=== PATIENT | male | born 1945 | race Caucasian/White ===

== ENCOUNTER → 2018-06-21 08:32 | Outpatient (CLI) | payer MEDICARE ==
--- NOTE | ~2018-06-21 | EC ---
PATIENT:SAMMI CALIXTO DATE OF SERVICE: 06/21/18 SEX: M MEDICAL RECORD: [id number] DATE OF : [birth year] LOCATION:D.[facility] AGE OF PATIENT: 72 ADMISSION DATE: 06/21/18 REFERRING PHYSICIAN: INTERPRETING PHYSICIAN: JEISON SMYTH MD ECHOCARDIOGRAM REPORT ECHO CHARGES 4 ECHO COMPLETE Date: 06/21 CLINICAL DIAGNOSIS: A-FIB/SOB/CP ECHOCARDIOGRAPHIC MEASUREMENTS (adult normal given) AC root (d.<3.7cm) 3.5 cm LV Septum d (<1.2 cm> 1.2 cm Valve Excursion 1.6 cm LV Septum (systole) 1.9 cm Left Atria (s.<4.0cm> 3.9 cm LVPW d(<1.2cm) 1.1 cm RV (d.<2.3cm) 3.6 cm LVPW (sytole) 1.7 cm LV diastole(<5.6CM) 5.6 cm MV E-F(>70mm/sec) cm LV systole 3.5 cm LVOT Diameter 1.8 cm MV exc.(>10mm) cm Est.ejection fraction (50-75%) % DOPPLER: LVIT cm/sec A 45.0 cm/sec E 71.0 cm/sec LA cm/sec RVSP 39.3 mmHg LVOT 88.0 cm/sec AOP1/2T m/s Asc. Ao 111 cm/sec RVOT 54.0 cm/sec RA cm/sec PA 80.0 cm/sec AV Gradient Peak 4.9 mmHg AV Mean 2.8 mmHg AV Area 1.9 cm MV Gradient Peak 3.1 mmHg MV Mean 0.95 mmHg MV Area cm COMMENTS: Head Greenskeeper: Kat GONZALEZDSOE Mechanical Service Representative: 4 Dr. Smyth TAPE# PACS Pericardial Effusion N DATE OF SERVICE: REFERRING PHYSICIAN: Transthoracic echocardiogram. FINDINGS: 1. Left ventricle shows normal left ventricular function. Inflow characteristics are normal; however, it appears the patient may be in AFib, so inflow characteristics are not likely very helpful. 2. Aortic valve looks normal. 3. The left atrium is not well visualized, but grossly normal. ECHOCARDIOGRAM REPORT [id number] SAMMI CALIXTO 4. The mitral valve is not well visualized, but again grossly normal. 5. The tricuspid valve has moderate tricuspid regurgitation. RVSP mildly elevated in the 30 to 35 mmHg range. 6. Pericardium is normal. 7. The right ventricle appears to be dilated. 8. The right atrium appears to be dilated. CONCLUSIONS: The patient has normal left ventricular systolic function. Right-sided structures appear to be dilated and there is mild elevation in right ventricular systolic pressures, however, it should be noted that this echo was difficult to visualize endocardial structures. TRANSINT:[id number] Voice Confirmation ID: [id number] DOCUMENT ID: [id number] JEISON SMYTH MD at 1435 CC: [id number] DICTATION DATE: 06/23/18 1121 CUSTOMER GREETER: 06/23/18 1141 DEP CLI 06/21/18 [facility] [address] [place] [address]
[~2018-06-21 08:32] MED LIST: ACETAMINOPHEN500 M1 PO; BAYER CHEWABLE81 MG PO; CORDARONE200 MG PO; ELIQUIS2.5 MG PO; ELIQUIS5 MG PO; FLORAJEN3 CAPS460 MG PO; IBUPROFEN200 MG PO; LOPRESSOR25 MG PO; MUCINEX600 MG PO; OMNICEF300 MG PO; PERCOCET 5-3251 TAB PO; PROTONIX40 MG PO; TESSALON PERLE100 MG PO; VENTOLIN HFA18 GM INH; ZITHROMAX250 MG PO
[2018-08-02 14:32] VITALS: BMI 29.5
== END | disposition home or self-care (01) ==
LOC: D.ECHO 08:32
DX: I48.91 Unspecified atrial fibrillation (principal); R06.02 Shortness of breath; R07.9 Chest pain, unspecified

== ENCOUNTER → 2018-07-03 18:13 | Outpatient (CLI) | payer MEDICARE ==
[2018-07-03 18:43] LABS: CHOL - HDL RATIO 2.5 ratio (2.3-4.9); LDL-HDL RATIO 1.4 ratio (1.5-3.5)
[2018-07-03 19:34] LABS: ERYTHROCYTE SEDIMENTATION RATE 5 mm/hr (0-20)
[2018-08-02 14:32] VITALS: BMI 29.5
== END | disposition home or self-care (01) ==
LOC: D.LABREF 18:13
PROVIDERS: Internal Medicine Cardiovascular Disease
DX: R07.9 Chest pain, unspecified (principal); R06.02 Shortness of breath

== ENCOUNTER → 2018-07-13 05:53 | Outpatient (CLI) | payer MEDICARE ==
[~2018-07-13] VITALS: Ht 177.8 cm; Wt 86.4 kg
--- NOTE | ~2018-07-13 | OP ---
PATIENT NAME: SAMMI CALIXTO MEDICAL RECORD: [id number] :[birth year] LOCATION:D.CAT ADMISSION DATE: SURGEON: BUBBA SMYTH MD DATE OF OPERATION: 07/13/2018 PROCEDURES: Left heart catheterization, LV gram, coronary angiogram. VP HUMAN RESOURCES: Bubba Smyth MD PROCEDURE IN DETAIL: The patient was brought into the cardiac catheterization lab in a stable condition. Both groins and the right wrist were sterilely prepped and draped. The patient had a 6-Zimbabwean sheath placed in the right radial artery using a modified Seldinger technique in a retrograde fashion. The patient then had a 5-Zimbabwean diagnostic catheter utilized to intubate the left ventricular cavity to the right coronary artery and the left coronary artery respectively. FINDINGS: 1. Hemodynamics: Left ventricular ejection fraction is 60%. End-diastolic pressure is normal to even low. 2. The left main is normal. 3. The LAD has an ostial proximal 70% stenosis moderately calcified and a mid heavily calcified 80% stenosis. 4. The mid diagonal has a proximal and mid 90% stenosis. 5. The circumflex has a 99% proximal stenosis and 100% stenosis at the OM vessel. 6. The RCA is a large dominant vessel, heavily calcified throughout its course with a 90% stenosis distally. 7. The right PDA has a mid 100% stenosis with midline bridging collaterals. IMPRESSION: Severe multivessel coronary artery disease with preserved LV systolic function. RECOMMENDATIONS: Consider coronary artery bypass grafting. TRANSINT:[id number] Voice Confirmation ID: [id number] DOCUMENT ID: [id number] BUBBA SMYTH MD at 1011 CC: [id number] DICTATION DATE: 07/13/18822 RIPSHEAR OPERATOR: 07/13/18 0847 DEP CLI 07/13/18 [place] [id number]
--- NOTE | ~2018-07-13 | HEMODYNAMI ---
PATIENT:SAMMI CALIXTO MEDICAL RECORD: [id number] : 49 LOCATION:DLM ADMISSION DATE: 07/13/18 Generatedon:07/13/20188:22 Patient name: SAMMI CALIXTO Patient #: [id number] SSN: DO B: 1945 Date of study: 07/13/2018 Page: Of Hemodynamic Procedure Report Patient Data Patient Demographics Procedure consent was obtained First Name: SAMMI Gender: Male Last Name: MARILY : 1945 [facility] Initial: B Age: 72 year(s) Patient #: [id number] Race: Unknown Additional ID: [id number] Contact details [address]: [address] [place] [address] State: [place] City: [place] Zip code: [address] Past Medical History Allergies Allergen Reaction Date Comments Reported Iodine 07/13/2018 IV contrast dye 07/13/2018 Admission Admission Data Admission Date: 07/13/2018 Admission Time: 5:53 Weight (lbs.): 198 Weight (kg.): 89.81 Lab Results Lab Result Date: 07/13/2018 Lab Result Time: 0:00 Biochemistry Name Units Result Min Max BUN mg/dl 16 --(---*)-- 7 18 Creatinine mg/dl 1.2 --(---*)-- 0.6 1.3 CBC Name Units Result Min Max Hemoglobin g/dl 13.8 --(*---)-- 13.5 17.5 Procedure Procedure Types Cath Procedure Diagnostic Procedure LHC [facility] w/Coronaries Sedation Charges Moderate Sedation up to 15 minutes Procedure Description Procedure Date Procedure Date: 07/13/2018 Procedure Start Time: 8:05 Procedure End Time: 8:19 Procedure Staff Name Function Bubba Marquez MD Performing Physician Marcia Da Silva RT Monitor Estelle Shafer RT Scrub Anjel Doe RN Nurse Procedure Data Cath Procedure Fluoroscopy Diagnostic fluoroscopy Total fluoroscopy Time: 2.4 time: 2.4 min min Diagnostic fluoroscopy Total fluoroscopy dose: 917 dose: 917 mGy mGy Contrast Material Contrast Material Type Amount (ml) Isovue 300 63 Entry Location Entry Primary Successful Side Size Upsize Upsize Entry Closure Krishnan ccessful Closure Location (Fr) 1 (Fr) 2 (Fr) Remarks Device Remarks Radial Right 6 Fr Mechanical artery Short Compression Estimated blood loss: 5 ml Diagnostic catheters Device Type Used For End Catheter Placement DIAGNOSTIC [place] 110cm 5 Procedure Fr catheter ([id number]) Procedure Complications No complications Procedure Medications Medication Administration Route Dosage Oxygen etCO2 Nasal cannula 2 l/min Lidocaine 2% added to field 20 Heparin Flush Bag added to field 2 bags (1000units/500ml NS) 0.9% NaCl I.V. 100 ml/hr Radial Cocktail I.A. 1 syringe (Verapomil 2mg/Nitro 400mcg/Heparin 1500units) Versed I.V. 1 mg Fentanyl I.V. 50 mcg Versed I.V. 0.5 mg Hemodynamics Rest HGB: 13.8 (g/dl) Heart Rate: 0 (bpm) Pressure Samples Time Site Value (mmHg) Purpose Heart Use Rate(bpm) 8:11 LV 102/-5,9 EDP 57 Gradients Valve Time Site Site Mean SEP/DFP Peak To Heart Use 1 2 (mmHg) (sec/min) Peak Rate (mmHg) (bpm) Aortic 8:12 LV AO 75 Snapshots Pre Cath Intra NCS Post Cath Vital Signs Time Heart Resp SPO2 etCO2 NIBP (mmHg) Rhythm Pain Sedation Rate (ipm) (%) (mmHg) Status Level (bpm) 7:51:27 61 20 99 141/90(121) A-Fib 0 (11) 10(A) , No pain 7:55:37 57 23 100 29.9 135/87(115) A-Fib 0 (11) 10(A) , No pain 7:59:47 68 19 100 29.9 122/81(109) A-Fib 0 (11) 10(A) , No pain 8:04:02 59 17 97 30 134/81(114) A-Fib 0 (11) 10(A) , No pain 8:08:12 60 17 96 18.7 131/83(112) A-Fib 0 (11) 9(A) , No pain 8:12:22 65 13 94 29.9 115/76(99) A-Fib 0 (11) 9(A) , No pain 8:16:26 63 15 93 29.9 107/75(89) A-Fib 0 (11) 10(A) , No pain Medications Time Medication Route Dose Verified Delivered Reason Notes Effectiveness by by 7:56:49 Oxygen etCO2 2 l/min Bubba Buffie used for Nasal Jimmy Doe RN procedure cannula 7:57:59 Lidocaine 2% added 20ml Bubba Bubba for local to vial Jimmy Marquez MD anesthetic field MORALES 7:58:05 Heparin Flush added 2 bags Bubba Bubba used for Bag to Jimmy Marquez MD procedure (1000units/500ml field MORALES NS) 7:58:14 0.9% NaCl I.V. 100 Bubba Buffie Per ml/hr Jimmy Doe RN physician 7:58:48 Radial Cocktail I.A. 1 Bubba Bubba for (Verapomil syringe Jimmy Marquez MD vasodilation 2mg/Nitro MD 400mcg/Heparin 1500units) 8:02:21 Versed I.V. 1 mg Bubba Buffie for sedation Jimmy Doe RN, MD 8:02:27 Fentanyl I.V. 50 mcg Bubba Buffie for sedation Jimmy Doe RN, MD 8:13:58 Versed I.V. 0.5 mg Bubba Buffie for sedation Jimmy Doe RN, MD Procedure Log Time Note 7:38:06 Signed procedure consent form obtained from patient. 7:38:08 Time tracking: Regular hours (M-F 7:00 - 5:00) 7:38:15 Plan of Care:Hemodynamics will remain stable., Cardiac rhythm will remain stable., Comfort level will be maintained., Respiratory function will remain adequate., Patient/ family verbilizes understanding of procedure., Procedure tolerated without complication., Recovers from procedure without complications.. 7:38:41 H&P Date Dictated: 07/11/2018 Within 30 days and on chart., H&P Addendum completed by physician on day of procedure. (MUST COMPLETE FOR ALL OUTPATIENTS). 7:38:56 Patient allergic to Iodine 7:39:04 Patient allergic to IV contrast dye 7:40:19 Patient Weight : 198 lbs 7:41:22 Estelle HOFFMANN(R) sent for patient. Start room use. 7:45:34 Patient received from Pre/Post Procedure Room to CCL 2 Alert and oriented. Tansferred to table in Supine position. 7:45:36 Warm blankets applied, and fan hugger turned on for patient comfort. 7:45:36 Correct patient and procedure confirmed by team. 7:45:37 ECG and BP/O2 sat monitors applied to patient. 7:45:38 Pre-procedure instructions explained to patient. 7:45:38 Pre-op teaching completed and patient verbalized understanding. 7:45:40 Family in waiting room. 7:45:42 Patient NPO since Midnight. 7:50:21 Vital chart was started 7:50:22 Baseline sample Acquired. 7:50:28 Rhythm: atrial fibrillation 7:50:32 Full Disclosure recording started 7:50:35 Is the patient allergic to Iodine/contrast media? No. 7:50:37 Is patient on blood thinner?Yes 7:50:39 ACC The patient was administered the following blood thiners within the last 24 hours: ACCPlavix 7:50:42 Patient diabetic? No. 7:50:47 Previous problem with sedation/anesthesia? No ? 7:50:54 Snore? No 7:50:55 Sleep apnea? No 7:50:56 Deviated septum? No 7:50:57 Opens mouth fully? Yes 7:50:58 Sticks out tongue? Yes 7:50:59 Airway obstruction? No ? 7:51:05 Dentures? Yes partila in tight 7:51:10 Modified Fam's test Ulnar < 7 seconds 7:51:11 Patient pain scale 0/10 ?. 7:51:20 IV patent on arrival in left forearm with 0.9% NaCl at O. 7:56:49 Oxygen 2 l/min etCO2 Nasal cannula was administered by Anjel Doe RN; used for procedure; 7:57:59 Lidocaine 2% 20ml vial added to field was administered by Bubba Marquez MD; for local anesthetic; 7:58:05 Heparin Flush Bag (1000units/500ml NS) 2 bags added to field was administered by Bubba Marquez MD; used for procedure; 7:58:10 Baseline sample Acquired. 7:58:14 0.9% NaCl 100 ml/hr I.V. was administered by Anjel Doe RN; Per physician; 7:58:48 Radial Cocktail (Verapomil 2mg/Nitro 400mcg/Heparin 1500units) 1 syringe I.A. was administered by Bubba Marquez MD; for vasodilation; 8:00:14 Lab Result : BUN 16 mg/dl 8:00:14 Lab Result : Hemoglobin 13.8 g/dl 8:00:14 Lab Result : Creatinine 1.2 mg/dl 8:00:17 Lab results completed and on chart. 8:00:20 Right Radial & Right Groin area was prepped with chlora-prep and draped in sterile fashion 8:00: Alarms reviewed by R. N. 8:00: Sharps counted by scrub and verified by R.N. 8:: --------ALL STOP TIME OUT------ : Final Timeout: patient, procedure, and site verified with staff and physician. All members of the team are in agreement. 8:00:25 Right Radial & Right Groin site verified by team. 8:00:28 Physical assessment completed. ASA score P 2 - A patient with mild systemic disease as per Bubba Marquez MD. 8:00:31 Sedation plan: IV Moderate Sedation Medication:Versed, Fentanyl 8:00:39 Use device set Radial Dx or PCI 8:00:40 ACIST Syringe (79088) opened to sterile field. 8:00:41 Bag Decanter (2002S) opened to sterile field. 8:00:42 ACIST Hand Control (41242) opened to sterile field. 8:00:43 ACIST Manifold (36480) opened to sterile field. 8:00:43 Tegaderm 4 x 4 (1626W) opened to sterile field. 8:00:45 Medline Cath Pack ([id number]) opened to sterile field. 8:00:45 DIAGNOSTIC WIRE .035 260cm J wire (767150) opened to sterile field. 8:00:46 MBrace Wrist Support ([id number]) opened to sterile field. 8:00:47 SHEATH 6Fr Prelude Radial ([id number]) opened to sterile field. 8:02:21 Versed 1 mg I.V. was administered by Anjel Doe RN; for sedation; 8:02:27 Fentanyl 50 mcg I.V. was administered by Anjel Doe RN; for sedation; 8:05:02 Zero performed for pressure channel P1 8:05:39 Procedure started. 8:05:57 Local anesthetic to right radial artery with Lidocaine 2% by Bubba Marquez MD.INITIAL ACCESS ONLY 8:09:05 A 6 Fr Short sheath was inserted into the Right Radial artery 8:09:24 A DIAGNOSTIC [place] 110cm 5 Fr catheter (455705) was advanced over the wire and used for Procedure. 8:10:34 LV gram done using TREJO 8:10:37 Injector settings: Ml/sec: 7, Volume: 15, 8:11:28 LV hemodynamics recorded. 8:12:06 EF : 60 % 8:13:58 Versed 0.5 mg I.V. was administered by Anjel Doe RN; for sedation; 8:14:02 LCA angiography performed. 8:16:35 RCA angiography performed. 8:16:43 Catheter removed. 8:16:47 TR BAND Standard ([id number]) opened to sterile field. 8:17:07 Procedure ended.(Physican Out) 8:17:41 Sheath removed intact; hemostasis achieved with Mechanical Compression to the Right Radial artery. 8:18:06 Fluoroscopy time 02.40 minutes. 8:18:10 Fluoroscopy dose: 917 mGy 8:18:10 Flurop Dose total: 917 8:18:13 Contrast amount:Isovue 300 63ml. 8:18:15 Sharps counted by scrub and verified by R.N. 8:18:17 TR band inflated with 10cc of air. 8:18:24 Post-procedure physical assessment completed. ASA score P 2 - A patient with mild systemic disease as per Bubba Marquez MD. 8:18:29 Post procedure rhythm: atrial fibrillation 8:18:32 Estimated blood loss: 5 ml 8:18:33 Post procedure instruction explained to patient.Patient verbalizes understanding. 8:18:34 Patient needs reinforcement of post procedure teaching. 8:18:55 Procedure type changed to Cath procedure, Diagnostic procedure, LHC, LHC w/Coronaries, Sedation Charges, Moderate Sedation up to 15 minutes 8:19:02 Procedure and supply charges have been captured, reviewed, submitted and are correct. 8:19:22 Procedure Complication : No complications 8:19:24 Vital chart was stopped 8:19:24 See physician's report for complete and final results. 8:19:26 Report given to Pre/Post Procedure Room. 8:19:34 Patient transfered to Pre/Post Procedure Room with Bed. 8:19:36 Procedure ended. 8:19:36 Full Disclosure recording stopped 8:19:41 End room use (Document Last) Device Usage Item Name Manufacture Quantity Catalog Number Hospital Part Current M inimal Lot# / Charge Number Stock Stock Serial# Code ACIST Syringe Acist 1 57245 445074 576179 489755 2 0 (13157) Medical Systems CareKinesis Bag Decanter Microtek 1 2001S 751314 48146 222984 5 (2001S) Medical Inc. ACIST Hand Acist 1 24221 459622 674785 559411 5 Control (80671) Medical Systems Inc ACIST Manifold Acist 1 11508 447187 575372 491316 5 (60716) Medical Systems Inc Tegaderm 4 x 4 3M 1 1626W 584454 956779 789097 5 (1626W) Medline Cath Cardinal 1 [id number] 151093 99917 282419 5 [facility] ([id number]) DIAGNOSTIC WIRE [facility] [place] 1 764313 521065 835176 091161 3 0 .035 260cm J wire (775931) MBrace Wrist Advanced 1 140-0250-00 641886 18257 616036 5 Support Vascular ([id number]) Dynamics SHEATH 6Fr Merit 1 [id number] 540477 887874 928571 5 Prelude Radial Medical ([id number]) DIAGNOSTIC Terumo 1 40-8787 115145 430568 496522 5 [place] 110cm 5 Fr catheter (870255) TR BAND Terumo 1 [id number] 690322 980558 058814 4 0 Standard ([id number]) Signature Audit [place] Stage Time Signature Unsigned Intra-Procedure 07/13/2018 Marcia Da Silva 8:21:54 AM RT(R) Signatures Monitor : Marcia Da Silva Signature : RT Date : Time : [place] [address] [place] [address]
[2018-07-13 07:11] VITALS: BP 171/84; Ht 177.8 cm; Wt 86.4 kg
[2018-07-13 07:11] LABS: BASOPHILS 0.6 % (0-2); EOSINOPHILS 5.1 % (0-7); HEMATOCRIT 40.3 % (42.0-54.0); HEMOGLOBIN 13.8 g/dL (13.5-17.5); IMMATURE GRANULOCYTES 0.2 % (0-5); LYMPHOCYTES 22.7 % (15-50); MCH 32.1 pg (26.0-34.0); MCHC 34.2 g/dL (31.0-37.0); MCV 93.7 fL (80.0-100.0); MONOCYTES 11.9 % (2-11); NEUTROPHILS 59.5 % (40-80); PLATELET COUNT 212 10x3/uL (130-400); RDW 12.6 % (11.5-14.5); WBC 6.5 10x3/uL (4.8-10.8)
[2018-07-13 07:46] LABS: ANION GAP 10.9 mmol/L (8-16); CALCIUM 8.4 mg/dL (8.5-10.1); CARBON DIOXIDE 27.5 mmol/L (21.0-32.0); CREATININE - SERUM 1.2 mg/dL (0.6-1.3); POTASSIUM - SERUM 4.4 mmol/L (3.5-5.1)
== END | disposition home or self-care (01) ==
LOC: D.CATH 05:53
PROVIDERS: Internal Medicine Cardiovascular Disease
DX: I25.119 Atherosclerotic heart disease of native coronary artery with unspecified angina pectoris (principal); Z01.812 Encounter for preprocedural laboratory examination

== ENCOUNTER 2018-07-22 02:52 | Inpatient (IN) | payer MEDICARE ==
[~2018-07-22] VITALS: Ht 177.8 cm; Wt 90.9 kg
[2018-07-22] VITALS (8 sets, daily range): BP systolic 120–150; BP diastolic 44–81; Ht 177.8 cm; Wt 90.9 kg
[~2018-07-22 02:52] MED LIST changes: -ACETAMINOPHEN500 M1 PO; -CORDARONE200 MG PO; -ELIQUIS2.5 MG PO; -FLORAJEN3 CAPS460 MG PO; -LOPRESSOR25 MG PO; -MUCINEX600 MG PO; -OMNICEF300 MG PO; -PERCOCET 5-3251 TAB PO; -PROTONIX40 MG PO; -TESSALON PERLE100 MG PO; -VENTOLIN HFA18 GM INH; -ZITHROMAX250 MG PO
[2018-07-22 03:27] LABS: BASOPHILS 0.4 % (0-2); EOSINOPHILS 1.8 % (0-7); HEMATOCRIT 42.9 % (42.0-54.0); HEMOGLOBIN 14.7 g/dL (13.5-17.5); IMMATURE GRANULOCYTES 0.2 % (0-5); LYMPHOCYTES 11.5 % (15-50); MCH 31.3 pg (26.0-34.0); MCHC 34.3 g/dL (31.0-37.0); MCV 91.5 fL (80.0-100.0); MEAN PLATELET VOLUME 9.9 fL (7.4-10.4); MONOCYTES 6.1 % (2-11); PLATELET COUNT 206 10x3/uL (130-400); RBC 4.69 10x6/uL (4.20-6.10); RDW 12.3 % (11.5-14.5); WBC 8.2 10x3/uL (4.8-10.8)
[2018-07-22 03:30] LABS: APTT 27.9 SECONDS (22.8-39.4); INR 1.01 (0.85-1.17); PROTIME 12.9 SECONDS (11.6-15.0)
[2018-07-22 03:53] LABS: ALBUMIN 3.6 g/dL (3.4-5.0); ALKALINE PHOSPHATASE 67 U/L (46-116); ALT (SGPT) 19 U/L (10-68); AMYLASE - SERUM 84 U/L (25-115); BILIRUBIN - TOTAL 0.26 mg/dL (0.2-1.3); CALC OSMOLALITY 265 mosm/kg (275-300); CALCIUM 7.8 mg/dL (8.5-10.1); CHLORIDE - SERUM 97 mmol/L (98-107); CKMB 1.7 U/L (0.0-3.6); CREATINE KINASE 62 UL (21-232); CREATININE - SERUM 1.1 mg/dL (0.6-1.3); GLUCOSE 146 mg/dL (74-106); LIPASE 244 U/L (73-393); POTASSIUM - SERUM 4.2 mmol/L (3.5-5.1); PRO BNP 756 pg/mL (0-125); PROTEIN - SERUM 7.6 g/dL (6.4-8.2); SODIUM 131 mmol/L (136-145); TROPONIN-I < 0.017 ng/mL (0.000-0.060); UREA NITROGEN 13 mg/dL (7-18); eGFR NON AFRICAN AMERICAN 70 mL/min (90-120)
[2018-07-22 06:34] LABS: CKMB 1.4 U/L (0.0-3.6); CREATINE KINASE 53 UL (21-232); TROPONIN-I < 0.017 ng/mL (0.000-0.060)
[2018-07-22 09:38] LABS: BASOPHILS 0.2 % (0-2); EOSINOPHILS 0.3 % (0-7); HEMATOCRIT 39.7 % (42.0-54.0); HEMOGLOBIN 13.8 g/dL (13.5-17.5); IMMATURE GRANULOCYTES 0.2 % (0-5); MCH 31.5 pg (26.0-34.0); MCHC 34.8 g/dL (31.0-37.0); MCV 90.6 fL (80.0-100.0); MEAN PLATELET VOLUME 9.9 fL (7.4-10.4); MONOCYTES 8.7 % (2-11); NEUTROPHILS 85.6 % (40-80); PLATELET COUNT 166 10x3/uL (130-400); RBC 4.38 10x6/uL (4.20-6.10); RDW 12.3 % (11.5-14.5)
[2018-07-22 09:39] LABS: WBC 12.7 10x3/uL (4.8-10.8)
[2018-07-22 11:29] LABS: CREATINE KINASE 44 UL (21-232)
[2018-07-22 11:35] LABS: TROPONIN-I < 0.017 ng/mL (0.000-0.060)
[2018-07-22 18:12] LABS: CKMB 0.8 U/L (0.0-3.6); CREATINE KINASE 35 UL (21-232); TROPONIN-I < 0.017 ng/mL (0.000-0.060)
[2018-07-23 00:46] VITALS: BP 118/72
[2018-07-23 05:03] LABS: BASOPHILS 0.4 % (0-2); EOSINOPHILS 1.1 % (0-7); HEMATOCRIT 38.2 % (42.0-54.0); IMMATURE GRANULOCYTES 0.1 % (0-5); LYMPHOCYTES 12.6 % (15-50); MCH 31.6 pg (26.0-34.0); MEAN PLATELET VOLUME 10.2 fL (7.4-10.4); MONOCYTES 10.5 % (2-11); NEUTROPHILS 75.3 % (40-80); PLATELET COUNT 170 10x3/uL (130-400); RBC 4.12 10x6/uL (4.20-6.10); RDW 12.8 % (11.5-14.5)
[2018-07-23 05:12] LABS: MCV 92.7 fL (80.0-100.0)
[2018-07-23 05:32] LABS: ALBUMIN 2.9 g/dL (3.4-5.0); ALKALINE PHOSPHATASE 52 U/L (46-116); ALT (SGPT) 16 U/L (10-68); BILIRUBIN - TOTAL 0.74 mg/dL (0.2-1.3); C-REACTIVE PROTEIN 9.7 mg/dL (0.0-0.9); CALC OSMOLALITY 269 mosm/kg (275-300); CALCIUM 7.6 mg/dL (8.5-10.1); CARBON DIOXIDE 24.6 mmol/L (21.0-32.0); CHLORIDE - SERUM 104 mmol/L (98-107); CREATININE - SERUM 0.9 mg/dL (0.6-1.3); GLUCOSE 109 mg/dL (74-106); POTASSIUM - SERUM 4.1 mmol/L (3.5-5.1); PROTEIN - SERUM 6.4 g/dL (6.4-8.2); SODIUM 135 mmol/L (136-145); UREA NITROGEN 11 mg/dL (7-18); eGFR NON AFRICAN AMERICAN 89 mL/min (90-120)
[2018-07-23 08:49] VITALS: BP 105/72
[2018-07-23] MEDS ORDERED: MUCINEX600 MG PO (11:47)
[2018-07-23] MEDS ORDERED: PROTONIX40 MG PO (11:47)
[2018-07-23] MEDS ORDERED: VENTOLIN HFA18 GM INH (11:47)
[2018-07-23] MEDS ORDERED: TESSALON PERLE100 MG PO (11:47)
[2018-07-23] MEDS ORDERED: OMNICEF300 MG PO (11:47)
[2018-07-23] MEDS ORDERED: FLORAJEN3 CAPS460 MG PO (11:47)
[2018-07-23] MEDS ORDERED: ZITHROMAX250 MG PO (11:47)
== END 2018-07-23 14:30 | disposition home or self-care (01) | DRG 194 ==
LOC: D.ER 02:52 → D.ICU 05:41 → D.MS 13:26
PROVIDERS: Family Medicine; Internal Medicine Gastroenterology
DX: J18.9 Pneumonia, unspecified organism (principal); E87.1 Hypo-osmolality and hyponatremia; I48.91 Unspecified atrial fibrillation; Z79.02 Long term (current) use of antithrombotics/antiplatelets; I25.10 Atherosclerotic heart disease of native coronary artery without angina pectoris; K21.9 Gastro-esophageal reflux disease without esophagitis; Z87.891 Personal history of nicotine dependence

== ENCOUNTER 2018-07-28 09:00 | Inpatient (IN) | payer MEDICARE ==
[~2018-07-28] VITALS: Ht 177.8 cm; Wt 97.0 kg
--- NOTE | ~2018-07-28 | TEE ---
PATIENT:SAMMI CALIXTO MEDICAL RECORD: [id number] LOCATION:[place] [address] AGE OF PATIENT: 72 ADMISSION DATE: 08/01/18 SEX: M REFERRING PHYSICIAN: INTERPRETING PHYSICIAN: TETE SAHA MD TRANSESOPHAGEAL ECHOCARDIOGRAM Date: 08/01/18 AVRIL CHARGE Y INDICATIONS: CABG PREMEDICATIONS: PATIENT'S RESPONSE PROCEDURE DOPPLER MEASUREMENTS: LVIT LA PA RA LVOT RVOT Asc. Ao AV Gradient Peak AV Mean AV Area MV Gradient Peak MV Mean MV Area INTERPRETATION: Doppler: 2-D: COLOR FLOW DOPPLER NORMAL SALINE STUDY: MISCELLANOUS: DIAGNOSIS: PLAN: Night Baker:Katt Marquez Security Manager: Grady ORANTES COMMENTS: MAE PATIENT DATE OF SERVICE: 08/01/2018 PROCEDURE: Transesophageal echo evaluation of valvular structures during bypass surgery. FINDINGS: 1. Left ventricular chamber size is within normal limits. Left ventricular systolic function is normal. Overall ejection fraction estimated at 55%. 2. Left atrium is enlarged. Right atrium and right ventricle chamber sizes are TRANSESOPHAGEAL ECHOCARDIOGRAM REPORT [id number] SAMMI CALIXTO as well mildly dilated. 3. Valvular structures have normal structure and motion. 4. Doppler interrogation only reveals trace to mild mitral regurgitation, mild tricuspid regurgitation, no other valvular insufficiency or stenosis. 5. No evidence of pericardial effusion or left ventricular thrombus. TRANSINT:[id number] Voice Confirmation ID: [id number] DOCUMENT ID: [id number] at 1950 CC: [id number] DICTATION DATE: 08/01/18 1543 ANVIL SEATING PRESS OPERATOR: 08/01/18 1556 ADM IN [place] [address] [place] [address]
--- NOTE | ~2018-07-28 | OP ---
PATIENT NAME: SAMMI CALIXTO MEDICAL RECORD: [id number] :49 LOCATION:D.CVI D.CV02 ADMISSION DATE:08/01/18 SURGEON: MUMTAZ WALL MD DATE OF OPERATION: 08/01/2018 SURGEON: Mumtaz Wall MD FLORICULTURE PROFESSOR: Elsa Sears MD and KIKA Pringle OPERATION PERFORMED: 1. Coronary artery bypass graft times 4 (left internal mammary artery to LAD, reverse saphenous vein graft from aorta to first diagonal, aorta to obtuse marginal, aorta to distal posterior descending artery). 2. Pulmonary vein radiofrequency ablation. 3. Application of left atrial appendage occlusion device. PREOPERATIVE DIAGNOSES: Atrial fibrillation and coronary artery disease. POSTOPERATIVE DIAGNOSES: Atrial fibrillation and coronary artery disease. ANESTHESIA: General endotracheal anesthesia. ESTIMATED BLOOD LOSS: Total cardiopulmonary bypass with Cell Saver retransfusion. COMPLICATIONS: None. SPECIMENS: None. CONDITION: Stable. DISPOSITION: CV ICU. OPERATIVE FINDINGS: 1. Transesophageal echocardiography revealed no intraatrial thrombus, moderately dilated right and left ventricle with normal contractility, the patient was in atrial fibrillation. 2. Good quality greater saphenous vein from the mid-calf upward, in the lower leg, some moderate calcification consistent with previous phlebitis, the smallest section from the lower leg was used for the diagonal graft. 3. Good quality left internal mammary artery, the LAD was a severely diseased 1.5 mm vessel. Good Doppler flow after anastomosis and after reversal of heparin. 4. First diagonal 1.5 mm vessel with severe disease. 5. The totally occluded obtuse marginal was grafted in its distal third. It was a 1.5 mm vessel. 6. The posterior descending artery had severe disease throughout, the distal vessel was 1.5 mm. 7. A 45 mm AtriCure left atrial appendage occlusion device applied. 8. Bilateral pulmonary vein radiofrequency ablation. 9. Separation from cardiopulmonary bypass in sinus bradycardia, the patient was paced atrioventricular. OPERATIVE INDICATION: AFib and coronary artery disease. OPERATIVE REPORT [id number] SAMMI CALIXTO OPERATIVE SUMMARY IN DETAIL: The patient was brought to the operating suite. General anesthesia obtained. The patient was prepped and draped. Greater saphenous vein was harvested in the right lower extremity utilizing intermittent incisions. Side branches divided with clips. The vessel was ligated proximally and distally and removed. Side branches were tied or oversewn. Later, the leg was irrigated. Drains were placed and it was closed in 2 layers. Median sternotomy incision was made. Subcutaneous tissue divided with electrocautery. Sternum was divided with a saw. The left hemisternum was elevated. The pleural cavity was entered. Left internal mammary and veins taken down as a pedicle graft. A sternal retractor was placed. Pericardium was opened. Heparin was given. The aorta was cannulated. Dual stage venous cannula was inserted. The internal mammary was clipped distally and made ready for anastomosis. The patient was placed on cardiopulmonary bypass. The right superior pulmonary vein was encircled and radiofrequency ablation was performed. Then, both the superior and inferior were encircled and together two separate radiofrequency ablations were performed. Then, on the left side, again the superior and inferior pulmonary veins were isolated and radiofrequency ablation was performed. Left atrial appendage base measured to 45-mm and the 45-mm occluder device was placed without complication. Retrograde cardioplegic cannula was inserted through a pursestring in the low right atrium. Antegrade cardioplegic cannula was inserted. Cross clamp was applied and cardioplegia given antegrade and retrograde and this was repeated at 15 to 20 minutes intervals during the cross clamp time including down the completed vein grafts. Distal anastomoses were performed in standard technique. Proximal anastomosis with single cross-clamp technique. Aortic root de-aired by removing the cross clamp tying the proximal anastomoses, de-airing the grafts and then restoring the flow proximal and distal anastomotic sites inspected for bleeding. The patient resumed a spontaneous rhythm. Atrial and ventricular pacing wires were placed and the patient was paced. Drains were placed in the mediastinum and left pleural cavity. The patient was fully rewarmed, weaned from cardiopulmonary bypass and was stable. The patient was decannulated. The cannula sites were oversewn. Protamine was given. Thorough irrigation was undertaken. Hemostasis was ensured. Pericardial fat was loosely reapproximated. Left chest was evacuated and irrigated. The internal mammary harvest site was inspected for bleeding. Sternum was closed with wires. Fascia was closed, subcutaneous tissue was closed. Skin was closed. Dermabond was placed, needle and sponge counts were correct. The patient was taken to the ICU in stable condition. TRANSINT:[id number] Voice Confirmation ID: [id number] DOCUMENT ID: [id number] MUMTAZ WALL MD at 1622 CC: JEFF ARTHUR and JEISON SMYTH MD [id number] DICTATION DATE: 08/01/18 1333 SECONDARY SCHOOL TEACHER LIBRARIAN: 08/01/18 1510 ADM IN [facility] [address] [place] [id number]
[~2018-07-28 09:00] MED LIST changes: +FLORAJEN3 CAPS460 MG PO; +MUCINEX600 MG PO; +OMNICEF300 MG PO; +PROTONIX40 MG PO; +TESSALON PERLE100 MG PO; +VENTOLIN HFA18 GM INH; +ZITHROMAX250 MG PO
[2018-07-28] MEDS ORDERED: BAYER CHEWABLE81 MG PO (10:19)
[2018-07-28 11:27] LABS: BASOPHILS 0.6 % (0-2); IMMATURE GRANULOCYTES 0.4 % (0-5); LYMPHOCYTES 13.3 % (15-50); MCH 31.9 pg (26.0-34.0); MCHC 34.1 g/dL (31.0-37.0); MCV 93.4 fL (80.0-100.0); MEAN PLATELET VOLUME 9.7 fL (7.4-10.4); MONOCYTES 12.9 % (2-11); NEUTROPHILS 68.8 % (40-80); RBC 4.39 10x6/uL (4.20-6.10); RDW 12.3 % (11.5-14.5); WBC 8.5 10x3/uL (4.8-10.8)
[2018-07-28 11:30] LABS: APPEARANCE CLEAR (CLEAR); BILIRUBIN NEGATIVE (NEGATIVE); COLOR YELLOW (YELLOW); GLUCOSE NEGATIVE (NEGATIVE); KETONE NEGATIVE (NEGATIVE); NITRITE NEGATIVE (NEGATIVE); PROTEIN NEGATIVE (NEGATIVE); SPECIFIC GRAVITY 1.005 (1.005-1.020); UROBILINOGEN NORMAL (NORMAL)
[2018-07-28 11:37] LABS: PLATELET COUNT 221 10x3/uL (130-400)
[2018-07-28 11:49] LABS: ALBUMIN 3.3 g/dL (3.4-5.0); ALKALINE PHOSPHATASE 52 U/L (46-116); ALT (SGPT) 22 U/L (10-68); BILIRUBIN - TOTAL 0.54 mg/dL (0.2-1.3); CALC OSMOLALITY 272 mosm/kg (275-300); CALCIUM 8.3 mg/dL (8.5-10.1); CARBON DIOXIDE 29.1 mmol/L (21.0-32.0); CHLORIDE - SERUM 100 mmol/L (98-107); CHOLESTEROL, TOTAL 175 mg/dL (0-200); GLUCOSE 88 mg/dL (74-106); PHOSPHOROUS 4.7 mg/dL (2.5-4.9); POTASSIUM - SERUM 4.3 mmol/L (3.5-5.1); PROTEIN - SERUM 7.5 g/dL (6.4-8.2); SODIUM 137 mmol/L (136-145); T4 THYROXIN - FREE 1.03 ng/dL (0.76-1.46); UREA NITROGEN 12 mg/dL (7-18); URIC ACID 6.1 mg/dL (2.6-7.2); eGFR NON AFRICAN AMERICAN 78 mL/min (90-120)
[2018-07-28 12:01] LABS: APTT 27.6 SECONDS (22.8-39.4); INR 1.09 (0.85-1.17); PROTIME 13.7 SECONDS (11.6-15.0)
[2018-08-01] VITALS (45 sets, daily range): BP systolic 98–133; BP diastolic 5–92; BMI 28.0; BMI 28.5
[2018-08-01] MEDS ORDERED: ACETAMINOPHEN500 M1 PO (05:49)
[2018-08-02] VITALS (48 sets, daily range): BP systolic 101–133; BP diastolic 57–84; Ht 177.8 cm; Wt 97.0 kg
[2018-08-02 05:36] LABS: HEMATOCRIT 35.2 % (42.0-54.0); MCH 31.6 pg (26.0-34.0); MCHC 34.1 g/dL (31.0-37.0); MCV 92.6 fL (80.0-100.0); MEAN PLATELET VOLUME 9.6 fL (7.4-10.4); RBC 3.8 10x6/uL (4.20-6.10); RDW 12.5 % (11.5-14.5); WBC 14.1 10x3/uL (4.8-10.8)
[2018-08-02 06:27] LABS: ALBUMIN 2.8 g/dL (3.4-5.0); ANION GAP 13.4 mmol/L (8-16); BILIRUBIN - TOTAL 0.39 mg/dL (0.2-1.3); CALCIUM 7.2 mg/dL (8.5-10.1); CREATININE - SERUM 1.1 mg/dL (0.6-1.3); POTASSIUM - SERUM 4.4 mmol/L (3.5-5.1); PROTEIN - SERUM 5.6 g/dL (6.4-8.2)
[2018-08-03] VITALS (23 sets, daily range): BP systolic 96–134; BP diastolic 56–80
[2018-08-03 05:17] LABS: HEMOGLOBIN 10.9 g/dL (13.5-17.5); MCH 31.3 pg (26.0-34.0); MCHC 34.1 g/dL (31.0-37.0); MEAN PLATELET VOLUME 9.9 fL (7.4-10.4); RBC 3.48 10x6/uL (4.20-6.10); RDW 12.5 % (11.5-14.5); WBC 17.6 10x3/uL (4.8-10.8)
[2018-08-03 05:23] LABS: ALBUMIN 2.6 g/dL (3.4-5.0); ANION GAP 12.1 mmol/L (8-16); BILIRUBIN - TOTAL 0.34 mg/dL (0.2-1.3); CALCIUM 7.3 mg/dL (8.5-10.1); CARBON DIOXIDE 26.1 mmol/L (21.0-32.0); CREATININE - SERUM 1.1 mg/dL (0.6-1.3); POTASSIUM - SERUM 4.2 mmol/L (3.5-5.1); PROTEIN - SERUM 5.8 g/dL (6.4-8.2)
[2018-08-04] VITALS (22 sets, daily range): BP systolic 93–120; BP diastolic 52–76
[2018-08-04 05:25] LABS: HEMATOCRIT 29.3 % (42.0-54.0); HEMOGLOBIN 10.4 g/dL (13.5-17.5); MCH 31.7 pg (26.0-34.0); MCHC 35.5 g/dL (31.0-37.0); MCV 89.3 fL (80.0-100.0); MEAN PLATELET VOLUME 9.5 fL (7.4-10.4); RBC 3.28 10x6/uL (4.20-6.10); RDW 12.2 % (11.5-14.5); WBC 13.6 10x3/uL (4.8-10.8)
[2018-08-04 05:46] LABS: ALBUMIN 2.6 g/dL (3.4-5.0); ANION GAP 12.4 mmol/L (8-16); BILIRUBIN - TOTAL 0.54 mg/dL (0.2-1.3); CALCIUM 7.4 mg/dL (8.5-10.1); CARBON DIOXIDE 25.8 mmol/L (21.0-32.0); CREATININE - SERUM 1.1 mg/dL (0.6-1.3); POTASSIUM - SERUM 4.2 mmol/L (3.5-5.1); PROTEIN - SERUM 5.9 g/dL (6.4-8.2)
[2018-08-05] VITALS (24 sets, daily range): BP systolic 97–156; BP diastolic 43–98
[2018-08-05 06:11] LABS: HEMATOCRIT 29.7 % (42.0-54.0); HEMOGLOBIN 10.7 g/dL (13.5-17.5); MCH 32.3 pg (26.0-34.0); MCV 89.7 fL (80.0-100.0); MEAN PLATELET VOLUME 10.2 fL (7.4-10.4); RBC 3.31 10x6/uL (4.20-6.10); RDW 12.4 % (11.5-14.5); WBC 14.5 10x3/uL (4.8-10.8)
[2018-08-05 06:42] LABS: ALBUMIN 2.5 g/dL (3.4-5.0); BILIRUBIN - TOTAL 1.01 mg/dL (0.2-1.3); CALCIUM 7.6 mg/dL (8.5-10.1); CARBON DIOXIDE 22.6 mmol/L (21.0-32.0); CREATININE - SERUM 1.2 mg/dL (0.6-1.3)
[2018-08-05 07:05] LABS: ANION GAP 15.3 mmol/L (8-16); POTASSIUM - SERUM 4.9 mmol/L (3.5-5.1)
[2018-08-06] VITALS (23 sets, daily range): BP systolic 108–133; BP diastolic 63–91
[2018-08-06 06:45] LABS: HEMATOCRIT 30.1 % (42.0-54.0); HEMOGLOBIN 10.5 g/dL (13.5-17.5); MCH 31.4 pg (26.0-34.0); MCHC 34.9 g/dL (31.0-37.0); MCV 90.1 fL (80.0-100.0); MEAN PLATELET VOLUME 9.8 fL (7.4-10.4); RBC 3.34 10x6/uL (4.20-6.10); RDW 12.5 % (11.5-14.5); WBC 13.4 10x3/uL (4.8-10.8)
[2018-08-06 07:05] LABS: ALBUMIN 2.7 g/dL (3.4-5.0); ANION GAP 13.8 mmol/L (8-16); BILIRUBIN - TOTAL 1.57 mg/dL (0.2-1.3); CALCIUM 7.8 mg/dL (8.5-10.1); CARBON DIOXIDE 24.4 mmol/L (21.0-32.0); CREATININE - SERUM 1.3 mg/dL (0.6-1.3); POTASSIUM - SERUM 5.2 mmol/L (3.5-5.1); PROTEIN - SERUM 6.3 g/dL (6.4-8.2)
[2018-08-07] VITALS (15 sets, daily range): BP systolic 107–141; BP diastolic 58–91
[2018-08-07 06:29] LABS: HEMATOCRIT 30.1 % (42.0-54.0); HEMOGLOBIN 10.2 g/dL (13.5-17.5); MCH 30.9 pg (26.0-34.0); MCHC 33.9 g/dL (31.0-37.0); MCV 91.2 fL (80.0-100.0); MEAN PLATELET VOLUME 9.5 fL (7.4-10.4); RBC 3.3 10x6/uL (4.20-6.10); RDW 12.9 % (11.5-14.5); WBC 10.4 10x3/uL (4.8-10.8)
[2018-08-07 06:54] LABS: ALBUMIN 2.7 g/dL (3.4-5.0); BILIRUBIN - TOTAL 0.94 mg/dL (0.2-1.3); CALCIUM 7.6 mg/dL (8.5-10.1); CARBON DIOXIDE 25.3 mmol/L (21.0-32.0); CREATININE - SERUM 1.2 mg/dL (0.6-1.3); PROTEIN - SERUM 6.1 g/dL (6.4-8.2)
[2018-08-07 06:55] LABS: ANION GAP 12.9 mmol/L (8-16); POTASSIUM - SERUM 4.2 mmol/L (3.5-5.1)
[2018-08-07 09:59] LABS: % SATURATION 21 % (15-55); IRON 40 ug/dl (35-150); TOTAL IRON BIND CAPACITY 188 ug/dl (260-445); UNSAT IRON BIND CAPACITY 148 ug/dl (150-375)
[2018-08-07] MEDS ORDERED: PERCOCET 5-3251 TAB PO (11:44)
[2018-08-07] MEDS ORDERED: LOPRESSOR25 MG PO (11:44)
[2018-08-07] MEDS ORDERED: CORDARONE200 MG PO (11:44)
[2018-08-07] MEDS ORDERED: ELIQUIS2.5 MG PO (11:49)
[2018-08-08 08:17] LABS: FOLATE (FOLIC ACID) - SERUM 12.6 ng/mL (>3.0)
== END 2018-08-07 14:09 | disposition home or self-care (01) | DRG 236 ==
LOC: D.SDCHOLD 10:00 → D.CVICU 08-01 05:00 → D.SDCHOLD 08-01 05:00 → D.CVICU 08-01 11:27
PROVIDERS: Internal Medicine Cardiovascular Disease; Internal Medicine Nephrology; Thoracic Surgery (Cardiothoracic Vascular Surgery)
PROC: 021209W Bypass Coronary Artery, Three Arteries from Aorta with Autologous Venous Tissue, Open Approach (ICD-10-PCS; 2018-08-01)
PROC: 06BP0ZZ Excision of Right Saphenous Vein, Open Approach (ICD-10-PCS; 2018-08-01)
PROC: B24BZZ4 Ultrasonography of Heart with Aorta, Transesophageal (ICD-10-PCS; 2018-08-01)
PROC: 5A1221Z Performance of Cardiac Output, Continuous (ICD-10-PCS; 2018-08-01)
PROC: 02L70CK Occlusion of Left Atrial Appendage with Extraluminal Device, Open Approach (ICD-10-PCS; 2018-08-01)
PROC: 02100Z9 Bypass Coronary Artery, One Artery from Left Internal Mammary, Open Approach (ICD-10-PCS; principal; 2018-08-01 07:30)
DX: I25.10 Atherosclerotic heart disease of native coronary artery without angina pectoris (principal); E87.1 Hypo-osmolality and hyponatremia; N17.9 Acute kidney failure, unspecified; K21.9 Gastro-esophageal reflux disease without esophagitis; Z85.46 Personal history of malignant neoplasm of prostate; E87.79 Other fluid overload; I48.2 Chronic atrial fibrillation; D64.9 Anemia, unspecified; I10 Essential (primary) hypertension

== ENCOUNTER → 2018-08-16 09:11 | Outpatient (CLI) | payer MEDICARE ==
[2018-08-02 14:32] VITALS: BMI 29.5
[~2018-08-16 09:11] MED LIST changes: +ACETAMINOPHEN500 M1 PO; +CORDARONE200 MG PO; +ELIQUIS2.5 MG PO; +LOPRESSOR25 MG PO; +PERCOCET 5-3251 TAB PO
[2018-08-16 09:59] LABS: HEMATOCRIT 36.6 % (42.0-54.0); MCH 31.2 pg (26.0-34.0); MCHC 32.8 g/dL (31.0-37.0); MCV 95.1 fL (80.0-100.0); MEAN PLATELET VOLUME 8.9 fL (7.4-10.4); RBC 3.85 10x6/uL (4.20-6.10); RDW 14.5 % (11.5-14.5)
[2018-08-16 10:05] LABS: ALBUMIN 2.9 g/dL (3.4-5.0); ANION GAP 13.8 mmol/L (8-16); BILIRUBIN - TOTAL 0.71 mg/dL (0.2-1.3); CALCIUM 8.2 mg/dL (8.5-10.1); CARBON DIOXIDE 25.6 mmol/L (21.0-32.0); CREATININE - SERUM 1.6 mg/dL (0.6-1.3); POTASSIUM - SERUM 4.4 mmol/L (3.5-5.1); PROTEIN - SERUM 6.7 g/dL (6.4-8.2)
== END | disposition home or self-care (01) ==
LOC: D.RAD 09:11
PROVIDERS: Internal Medicine Cardiovascular Disease
DX: D64.9 Anemia, unspecified (principal); J91.8 Pleural effusion in other conditions classified elsewhere

== ENCOUNTER → 2018-08-23 09:52 | Outpatient (CLI) | payer MEDICARE ==
[2018-08-02 14:32] VITALS: BMI 29.5
[2018-08-23 10:42] LABS: ALBUMIN 3.2 g/dL (3.4-5.0); ANION GAP 10.2 mmol/L (8-16); BILIRUBIN - TOTAL 0.6 mg/dL (0.2-1.3); CALCIUM 8.1 mg/dL (8.5-10.1); CARBON DIOXIDE 28.8 mmol/L (21.0-32.0); CREATININE - SERUM 1.4 mg/dL (0.6-1.3); PROTEIN - SERUM 7.2 g/dL (6.4-8.2)
== END | disposition home or self-care (01) ==
LOC: D.RAD 09:30
PROVIDERS: Thoracic Surgery (Cardiothoracic Vascular Surgery)
DX: J91.8 Pleural effusion in other conditions classified elsewhere (principal); E87.8 Other disorders of electrolyte and fluid balance, not elsewhere classified

== ENCOUNTER → 2018-09-08 11:54 | Outpatient (CLI) | payer MEDICARE ==
[2018-08-02 14:32] VITALS: BMI 29.5
--- NOTE | ~2018-09-08 | EC ---
PATIENT:SAMMI CALIXTO DATE OF SERVICE: 09/08/18 SEX: M MEDICAL RECORD: [id number] DATE OF : 49 LOCATION:[facility] AGE OF PATIENT: 73 ADMISSION DATE: 09/08/18 REFERRING PHYSICIAN: INTERPRETING PHYSICIAN: JEISON SMYTH MD ECHOCARDIOGRAM REPORT ECHO CHARGES 4 ECHO COMPLETE Date: 09/08/18 CLINICAL DIAGNOSIS: AFIB/ CAD/RECENT CABG ECHOCARDIOGRAPHIC MEASUREMENTS (adult normal given) AC root (d.<3.7cm) 3.7 cm LV Septum d (<1.2 cm> 1.5 cm Valve Excursion 1.6 cm LV Septum (systole) 1.6 cm Left Atria (s.<4.0cm> 4.0 cm LVPW d(<1.2cm) 1.4 cm RV (d.<2.3cm) 4.7 cm LVPW (sytole) 1.6 cm LV diastole(<5.6CM) 5.2 cm MV E-F(>70mm/sec) cm LV systole 4.3 cm LVOT Diameter 2.1 cm MV exc.(>10mm) cm Est.ejection fraction (50-75%) % DOPPLER: LVIT cm/sec A cm/sec E 70.0 cm/sec LA cm/sec RVSP 27 mmHg LVOT 73 cm/sec AOP1/2T m/s Asc. Ao 117 cm/sec RVOT 51 cm/sec RA cm/sec PA 100 cm/sec AV Gradient Peak 5.50 mmHg AV Mean 2.54 mmHg AV Area 2.3 cm MV Gradient Peak 4.55 mmHg MV Mean 1.50 mmHg MV Area cm COMMENTS: Community Associate: 2 AYAAN ORANTES Substation Inspector: 4 Dr. Smyth TAPE# PACS Pericardial Effusion N DATE OF SERVICE: PROCEDURE: Transthoracic echocardiogram. FINDINGS: 1. Left ventricle has moderate concentric left ventricular hypertrophy. Ejection fraction is low normal, 50-55%. The patient is in atrial fibrillation, unable to engage diastolic function. 2. The left atrium is mildly dilated. 3. Aortic valve is normal. ECHOCARDIOGRAM REPORT [id number] SAMMI CALIXTO 4. The mitral valve has mild mitral regurgitation. 5. Tricuspid valve has mild tricuspid regurgitation. RVSP is 27 mmHg. 6. The right ventricle is moderately dilated. 7. The right atrium is moderately dilated. There is no pericardial effusion. CONCLUSIONS: The patient has evidence of left ventricular hypertrophy. Mild dilatation of the left atrium. The patient is in atrial fibrillation with preserved low normal systolic function. TRANSINT:[id number] Voice Confirmation ID: [id number] DOCUMENT ID: [id number] JEISON SMYTH MD at 2344 CC: [id number] DICTATION DATE: 09/10/18 1017 WASTEWATER ANALYST: 09/10/18 1158 DEP CLI 09/08/18 [id number] [place] [address]
== END | disposition home or self-care (01) ==
LOC: D.ECHO 11:54
DX: I48.91 Unspecified atrial fibrillation (principal); I25.10 Atherosclerotic heart disease of native coronary artery without angina pectoris; Z95.1 Presence of aortocoronary bypass graft

== ENCOUNTER → 2018-12-04 18:06 | Outpatient (CLI) | payer MEDICARE ==
[2018-08-02 14:32] VITALS: BMI 29.5
[2018-12-04 18:52] LABS: CHOL - HDL RATIO 2.7 ratio (2.3-4.9); LDL-HDL RATIO 1.5 ratio (1.5-3.5)
== END | disposition home or self-care (01) ==
LOC: D.LABREF 18:06
PROVIDERS: Internal Medicine Interventional Cardiology
DX: E78.5 Hyperlipidemia, unspecified (principal)